=== PATIENT | female | born 1995 | race Two or more races ===

== ENCOUNTER 2025-04-12 21:23 | Outpatient (CLI) | payer OTHER ==
[~2025-04-12] VITALS: Ht 157.5 cm; Wt 74.8 kg
[2025-04-12 19:42] VITALS: BP 106/74
[2025-04-12] MEDS ORDERED: RINGERS SOLUTION,LACTATED 1,000 ML IV SCH (21:30)
[2025-04-12 21:53] LABS: BASO % 0.2 % (0.1-1.2); EOS # 0.18 (0.04-0.54); EOS % 1.6 % (0.7-7.0); LYMPH # 2.18 (1.18-3.74); LYMPH % 19.9 % (19.3-53.1); MEAN PLATELET VOLUME 10.50 fl (9.4-12.4); MONO # 0.85 (0.24-0.82); MONO % 7.8 % (4.7-12.5); NEUT # 7.59 (1.56-6.13); NEUT % 69.4 % (34.0-71.1); RED CELL DISTRIBUTION WIDTH 13.6 % (11.6-14.4)
[2025-04-12 21:54] LABS: URINE APPEARANCE Cloudy; URINE BILIRRUBIN Negative (NEGATIVE); URINE BLOOD Negative; URINE COLOR Yellow; URINE GLUCOSE Negative (NEGATIVE); URINE KETONE Trace (NEGATIVE); URINE LEUKOCYTE Large; URINE NITRATE Negative; URINE PROTEIN Trace (NEGATIVE); URINE UROBILINOGEN 1.0 E.U./dl
[2025-04-12 21:57] LABS: URINE CAST 5.71 uL (0.0-1.40); URINE EPITHELIAL CELLS 171.0 uL (0.0-38.8); URINE RBC 16.5 uL (0.0-20.8); URINE WBC 1091.5 uL (0.0-23.2)
[2025-04-12 22:10] LABS: URINE YEAST FEW /hpf
[2025-04-12] MEDS ORDERED: ADULT LOW DOSE81 M1 (22:10)
[2025-04-12] MEDS ORDERED: PRENATA CHEWAB1 EACH PO (22:10)
[2025-04-12 23:19] VITALS: BP 113/68
[2025-04-13] MEDS ORDERED: CEFAZOLIN SODIUM 1,000 MG VIAL IV SCH
[2025-04-13 03:40] VITALS: BP 99/67
[2025-04-13 06:12] VITALS: BP 103/63; O2SAT 99
[2025-04-13] MEDS ORDERED: ACETAMINOPHEN 500 MG GEL..CAP PO ONE ×2 (11:17→11:45)
[2025-04-13 11:30] VITALS: BP 103/69
[2025-04-13 14:14] VITALS: BP 103/69
== END 2025-04-13 14:39 | disposition home or self-care (01) ==
LOC: OBS/DEL 21:23
PROVIDERS: ATTEND Obstetrics & Gynecology
DX: O26.843 Uterine size-date discrepancy, third trimester (principal); O36.8130 Decreased fetal movements, third trimester, not applicable or unspecified; Z3A.35 35 weeks gestation of pregnancy